=== PATIENT | female | born 1960 | race Caucasian/White ===

== ENCOUNTER 2023-04-02 12:02 | Emergency (ER) | payer OTHER, SELFPAY ==
--- NOTE | ~2023-04-02 | CT_ITS ---
EXAMINATION: CT HEAD WITHOUT CONTRAST CT MAXILLOFACIAL BONES WITHOUT CONTRAST CLINICAL INFORMATION: Mandibular pain. Prior fall. Right ear trauma. COMPARISON: None. TECHNIQUE: Helical imaging was performed from the skullbase to vertex without intravenous administration of contrast. This CT examination was performed using dose optimization techniques as appropriate, variously including the following: *Automated exposure control *Adjustment of mA and/or kV according to patient size (this includes techniques or standardized protocols for targeted exams where dose is matched to indication/reason for exam; i.e. extremities or head) *Use of iterative reconstruction technique DLP: 215.3, 579.04 mGy-cm. FINDINGS: There is no evidence of acute intracranial hemorrhage or territorial infarction. No abnormal mass effect or midline shift is seen. No extra-axial fluid collections are identified. The ventricles are normal in size. There is no abnormal attenuation within the brain parenchyma. The mastoid air cells are well aerated. The temporomandibular joints are normal bilaterally. The styloid processes are intact. There are small foci of subcutaneous air in the right parotid gland with what may represent a laceration involving the conchal portion of the right auricle, not fully imaged. No associated subcutaneous hematoma visible. No maxillofacial fracture is seen. Very mild mucosal thickening visible in the maxillary sinuses. There is a moderate to severe rightward nasal septal deviation with nasal septal spurring distorting the right inferior turbinate. The orbits are normal in appearance. There are moderate degenerative changes in the odontoid tip and in the anterior arch of C1 with osteophytic spurring. There are degenerative calcifications in the transverse ligament at this level as well. CT/CT facial bones wo IV con IMPRESSION: No acute intracranial pathology. No acute maxillofacial fractures. Small foci of air in the superficial right parotid space underlying what may represent a laceration injury involving the conchal portion of the right auricle; correlate with findings on direct visual inspection. No large soft tissue hematoma visible at this site.
[2023-04-02 12:19] VITALS: BP 142/99; PULSE 71; RESP 17; TEMP 37.1; O2SAT 100; BMI 23.8
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
--- OUTSIDE RECORDS SUMMARY | 2023-04-02 13:15 | XMS_ITS | Continuity of Care Document ---
Author Name Unknown Organization [facility] Address [address] [place] [address]- Care Team Providers Care Parts Analyst Name Role Phone Paulo GONZALEZ, Nabila Kate Primary Care Physician [place] [facility] [facility] [place] [facility] [address] [place] [address] [facility] Allergies, Adverse Reactions, Alerts Substance Reaction Severity Status Percocet 5/325 Nausea and vomiting status Active Immunizations Given and Recorded Vaccine Date Status Refusal Reason Tet/Diphth/Acel, Pertussis (oldterm) 02/24/09 Give n Influenza Vaccine (oldterm) 02/17/09 Given influenza virus vaccine, inactivated 1 02/01/09 Gi perla influenza virus vaccine, inactivated 12/13/07 Give n Pneumococcal Vaccine (oldterm) 12/13/07 Given 1Admin Note: vis 09/20/08 Medications Fish Oil By Mouth, 0 Refills, Maintenance, 12/29/18 11:52:00 EST Start Date: 12/29/18 Status: Ordered ibuprofen 800 mg oral tablet 1 tablet = 800 mg, By Mouth, 3 times a day, PRN as needed for headache, continuous use >2-4 weeks can result to gastric and renal injury, # 90 tablet, 3 Refills, Maintenance, 05/13/13 17:20:54, 1 tablet By Mouth 3 times a day,PRN:as needed for headach... Start Date: 05/13/13 Status: Ordered ProAir HFA 90 mcg/inh inhalation aerosol with adapter 1 puffs, Inhalation, 4 times a day, lmom and advised needs appt for refills, # 1 each, 0 Refills, Maintenance, 05/04/14 11:15:36, 1 puffs Inhalation 4 times a day,x90 days,Instr:lmom and advised needs appt for refills Start Date: 05/04/14 Stop Date: 08/02/14 Status: Ordered Valtrex 500 mg oral tablet 1 tablet, By Mouth, Every 24 hours, # 90 tablet, 0 Refills, Maintenance, 1 tablet By Mouth Every 24hours,x90 days Start Date: 04/23/13 Stop Date: 07/22/13 Status: Ordered venlafaxine 50 mg oral tablet 1 tablet = 50 mg, By Mouth, 2 times a day, # 180 tablet, 3 Refills, Maintenance, 01/28/14 15:59:51,Tablet, 1 tablet By Mouth 2 times a day Start Date: 01/28/14 Status: Ordered Vitamin D 49781 iu oral capsule 50,000 International_Units, 1, capsule, By Mouth, Daily, Refills 0, Maintenance, 12/29/18 11:51:54 EST Start Date: 12/29/18 Status: Ordered Problem List Condition Effective Dates Status Health Status Inform ant Allergic rhinitis(Confirmed) Active Anxiety disorder(Confirmed) Active Asthma(Confirmed) Active
--- OUTSIDE RECORDS SUMMARY | 2023-04-02 13:15 | XMS_ITS | Continuity of Care Document ---
Author Name Unknown Organization [facility] Address [address] [place] [address]- Care Team Providers Care Grout Machine Tender Name Role Phone Nabila Bates MD Primary Care Physician [phone] [id number] Date(s): 10/02/18 - 04/25/19 [facility] [address] [place] [address] [facility] Discharge Disposition: A-D/C Home Attending Physician: Kaz GONZALEZ(Hem/Onc), Arturo Taylor Admitting Physician: Kaz GONZALEZ(Hem/Onc), Arturo Taylor Referring Physician: Nabila Bates MD Allergies, Adverse Reactions, Alerts Substance Reaction Severity [...] Start Date: 01/28/14 Status: Ordered Vitamin D 16153 iu oral capsule 50,000 International_Units, 1, capsule, By Mouth, Daily, Refills 0, Maintenance, 12/29/18 11:51:54 EST Start Date: 12/29/18 Status: Ordered Problem List Condition Effective Dates Status Health Status Inform ant Allergic rhinitis(Confirmed) Active Anxiety disorder(Confirmed) Active Asthma(Confirmed) Active Vital Signs Most recent to oldest [Reference Range]: 1 Height 162.8 cm (12/29/18 11:48 AM) Weight 64.4 kg (12/29/18 11:48 AM) Pulse Rate [55-90 bpm] 56 bpm (12/29/18 11:48 AM) Body Mass Index [18.5-24.99] 24.3 (12/29/18 11:48 AM) Blood Pressure [90-138/55-84 mm Hg] 113/ 76mm Hg (12/29/18 11:48 AM) Temperature [96.8-100.4 DegF] 98.1 DegF (12/29/18 11:48 AM) Blood pressure sites Arm, right (12/29/18 11:48 AM) Temperature Route Temporal (12/29/18 11:48 AM) Dry Weight 64.4 kg (12/29/18 11:48 AM) Weight Obtained Via Standing scale (12/29/18 11:48 AM) Dry Weight Obtained Via Standing scale (12/29/18 11:48 AM)
--- OUTSIDE RECORDS SUMMARY | 2023-04-02 13:15 | XMS_ITS | Continuity of Care Document ---
Author Name Unknown Organization [facility] Josie yamilet Address [address] [place] [address] [address] [place] [address]- Care Team Providers Care Dip Guider Stoves Name Role Phone Nabila Bates MD Primary Care Physician [place] [facility] [place] 02/08/20 - 02/15/20 [facility] [address] [place] [address]- Attending Physician: Justine Morrell MD Referring Physician: Nabila Bates MD Allergies, Adverse [...] 12/13/07 Given 1Admin Note: vis 09/20/08 Medications CeleBREX 50 mg oral capsule 1 capsule = 50 mg, By Mouth, 2 times a day, 0 Refills, Maintenance, 01/27/20 13:58:00 EST, Partial fill upon patient request if the prescription is for a schedule II opioid drug. Start Date: 01/27/20 Status: Ordered Fish Oil By Mouth, 0 Refills, Maintenance, [...] Start Date: 01/28/14 Status: Ordered Vitamin D 29216 iu oral capsule 50,000 International_Units, 1, capsule, By Mouth, Daily, Refills 0, Maintenance, 12/29/18 11:51:54 EST Start Date: 12/29/18 Status: Ordered Problem List Condition Effective Dates Status Health Status Inform ant Allergic rhinitis(Confirmed) Active Anxiety disorder(Confirmed) Active Asthma(Confirmed) Active Vital Signs Most recent to oldest [Reference Range]: 1 Height 162.8 cm (02/08/20 9:10 AM) Weight 64 kg (02/08/20 9:10 AM) Body Mass Index [18.5-24.99] 24.15 (02/08/20 9:10 AM) Temperature [96.8-100.4 DegF] 97.2 DegF (02/08/20 9:10 AM) Social History Social History Type Response Smoking Status Never (less than 100 in lifetime) entered on: 01/27/20 Sex
--- OUTSIDE RECORDS SUMMARY | 2023-04-02 13:15 | XMS_ITS | Continuity of Care Document ---
Author Name Unknown Organization [facility] Josie yamilet Address [address] [place] [address] [address] [place] [address]- Care Team Providers Care Infrastructure Developer Name Role Phone Nabila Bates MD Primary Care Physician [place] [facility] [place]/20 [facility] [address] [place] [address]- Attending Physician: Artuor De Jesus MD Referring Physician: Not on Staff, Referring MD Allergies, Adverse Reactions, Alerts Substance Reaction [...] Start Date: 01/28/14 Status: Ordered Vitamin D 30876 iu oral capsule 50,000 International_Units, 1, capsule, By Mouth, Daily, Refills 0, Maintenance, 12/29/18 11:51:54 EST Start Date: 12/29/18 Status: Ordered Problem List Condition Effective Dates Status Health Status Inform ant Allergic rhinitis(Confirmed) Active Anxiety disorder(Confirmed) Active Asthma(Confirmed) Active Social History Social History Type Response Smoking Status Never (less than 100 in lifetime) entered on: 01/27/20 Sex
--- OUTSIDE RECORDS SUMMARY | 2023-04-02 13:15 | XMS_ITS | Continuity of Care Document ---
Author Name Unknown Organization [facility] Josie yamilet Address [address] [place] [address] [address] [place] [address]- Care Team Providers Care Journeyman Meat Cutter Name Role Phone Nabila Bates MD Primary Care Physician [place] [facility] [place] 03[place]24/20 [facility] [address] [place] [address]- Attending Physician: Arturo De Jesus MD Referring Physician: Nabila Bates MD Allergies, [...] Start Date: 01/28/14 Status: Ordered Vitamin D 91158 iu oral capsule 50,000 International_Units, 1, capsule, [...]
--- OUTSIDE RECORDS SUMMARY | 2023-04-02 13:15 | XMS_ITS | Continuity of Care Document ---
Author Name Unknown Organization [facility] Josie yamilet Address [address] [place] [address] [address] [place] [address]- Care Team Providers Care Irrigation District Manager Name Role Phone Nabila Bates MD Primary Care Physician [phone] [place] [facility] [place] - 04/09/20 [facility] [address] [place], [place] [address] Attending Physician: AdmYandy fernando Admitting Physician: AdmtrYandy Referring Physician: Admtr, Ar8 Allergies, Adverse Reactions, Alerts Substance Reaction Severity [...] Start Date: 01/28/14 Status: Ordered Vitamin D 97215 iu oral capsule 50,000 International_Units, 1, capsule, [...]
--- OUTSIDE RECORDS SUMMARY | 2023-04-02 13:15 | XMS_ITS | Continuity of Care Document ---
Author Name Unknown Organization [facility] Josie yamilet Address [address] [place] [address] [address] [place] [address]- Care Team Providers Care Suction Plate Roller Hand Name Role Phone Nabila Bates MD Primary Care Physician [phone] [place] [facility] [place](s): 02/23/20 - 03/24/20 [facility] [address] [place] [address]- Attending Physician: Yandy Hernández Admitting Physician: AdmYandy fernando Referring Physician: AdmtrYandy Allergies, Adverse Reactions, Alerts Substance Reaction Severity [...] Start Date: 01/28/14 Status: Ordered Vitamin D 17469 iu oral capsule 50,000 International_Units, 1, capsule, [...]
--- OUTSIDE RECORDS SUMMARY | 2023-04-02 13:15 | XMS_ITS | Continuity of Care Document ---
Author Name Unknown Organization [facility] Josie yamilet Address [address] [place] [address] [address] [place] [address]- Care Team Providers Care Braille Teacher Name Role Phone Nabila Bates MD Primary Care Physician [phone] [place] [facility] [place]20 - 02/03/20 [facility] [address] [place] [address]- Attending Physician: Edith Lai Referring Physician: Nabila Bates MD Allergies, Adverse [...] Start Date: 01/28/14 Status: Ordered Vitamin D 13717 iu oral capsule 50,000 International_Units, 1, capsule, By Mouth, Daily, Refills 0, Maintenance, 12/29/18 11:51:54 EST Start Date: 12/29/18 Status: Ordered Problem List Condition Effective Dates Status Health Status Inform ant Allergic rhinitis(Confirmed) Active Anxiety disorder(Confirmed) Active Asthma(Confirmed) Active Vital Signs Most recent to oldest [Reference Range]: 1 Height 162.8 cm (01/27/20 1:56 PM) Weight 64.4 kg (01/27/20 1:56 PM) Body Mass Index [18.5-24.99] 24.3 (01/27/20 1:56 PM) Temperature [96.8-100.4 DegF] 97.8 DegF (01/27/20 1:56 PM) Social History Social History Type Response Smoking Status Never (less than 100 in lifetime) entered on: 01/27/20 Sex
[2023-04-02] MEDS: Amoxicillin/Potassium Clav 875 MG TABLET PO (13:32)
[2023-04-02] MEDS: LORazepam 1 MG TABLET 2 MG PO (13:32)
[2023-04-02] MEDS: Lidocaine/Racepinep/Tetracaine 3 ML GEL.PF.APP 2 ML TOPICAL (13:32)
[2023-04-02] MEDS: Lidocaine HCl 1 % MPF 5 ML VIAL 10 ML INFILTRATI (14:29)
== END 2023-04-02 15:11 | disposition home or self-care (01) ==
PROVIDERS: Emergency Provider Emergency Medicine; PCP Student in an Organized Health Care Education/Training Program
DX: S09.8XXA Other specified injuries of head, initial encounter (principal); S01.311A Laceration without foreign body of right ear, initial encounter; V13.0XXA Pedal cycle driver injured in collision with car, pick-up truck or van in nontraffic accident, initial encounter; Y93.55 Activity, bike riding; Y92.414 Local residential or business street as the place of occurrence of the external cause; Y99.9 Unspecified external cause status
CPT/HCPCS: 12013; 70450; 70486; 99282; 99284